=== PATIENT | male | born 1980 | race Two or more races ===

== ENCOUNTER 2020-08-25 15:47 | Emergency (ER) | payer MEDICAID, SELFPAY ==
[~2020-08-25] VITALS: Ht 185.4 cm; Wt 62.9 kg
[2020-08-25] MEDS ORDERED: AZITHROMYCIN 500 MG TABLET ONE (16:22)
[2020-08-25] MEDS ORDERED: CEFTRIAXONE 1,000 MG ONE (16:22)
--- NOTE | 2020-08-25 16:26 | NUR ---
pt medicated per mar. urine collected and tubed to lab at this time
[2020-08-25] MEDS ORDERED: AZITHROMYCIN 500 MG TABLET PO ONE (16:30)
[2020-08-25] MEDS ORDERED: CEFTRIAXONE 250 MG IM ONE (16:30)
--- NOTE | 2020-08-25 17:52 | NUR ---
pt ambulates to restroom with steady gait at this time.
[2020-08-25 18:26] VITALS: BP 124/74
--- NOTE | 2020-08-25 18:26 | NUR ---
PT D/C WITH D/C SUMMARY AND SCRIPT. ALL QUESTIONS ANSWERED. PT AMBULATES TO REGISTRATION DESK WITH STEADY GAIT FOR D/C HOME AND DENIES ANY OTHER NEEDS PERTAINING TO THIS VISIT.
== END 2020-08-25 18:32 | disposition home or self-care (01) ==
LOC: ED 17:06
DX: N34.2 Other urethritis (principal); Z59.0 Homelessness
CPT/HCPCS: 87491; 87591; 96372; 99283; J0696

== ENCOUNTER 2021-06-29 14:57 | Emergency (ER) | payer MEDICAID ==
[~2021-06-29] VITALS: Ht 185.4 cm; Wt 65.0 kg
[2021-06-29] MEDS ORDERED: ASPIRIN 81 MG TABLET CHEW PO ONE (15:30)
[2021-06-29] MEDS ORDERED: DEXT4TAB31 PO (16:12)
--- NOTE | 2021-06-29 16:12 | NUR ---
PT TO ROOM FROM LOBBY VIA WHEELCHAIR AT THIS TIME. PT C/O LEFT SIDE CP "BURNING" PAIN INCREASES WITH MOVEMENT AND PALPATION. IS NON-RADIATING. VSS. PT STATES PAIN IS SAME WHEN HE HAD BELSPALSY IN NOVEMBER OF THIS YEAR. CALL LIGHT W/I REACH. PROVIDER EVAL PENDING.
[2021-06-29] MEDS ORDERED: ASPIRIN 81 MG TABLET CHEW ONE (16:14)
[2021-06-29 16:33] LABS: BASOPHILS % (AUTO) 0 % (0-1); EOSINOPHILS % (AUTO) 0 % (1-7); LYMPHOCYTES % (AUTO) 11 % (22-44); MEAN CORPUSCULAR HEMOGLOBIN 27.9 pg (27.5-34.5); MEAN CORPUSCULAR HGB CONC 33.3 g/dL (33.2-36.2); MEAN PLATELET VOLUME 6.4 fL (7.4-10.4); MONOCYTES % (AUTO) 6 % (2-9); NEUTROPHILS % (AUTO) 82 % (42-75); PLATELET COUNT 396 x10^3/uL (130-400); RED BLOOD COUNT 4.74 x10^6/uL (4.38-5.82); RED CELL DISTRIBUTION WIDTH 15.2 % (9.4-14.8)
[2021-06-29 16:39] LABS: ALANINE AMINOTRANSFERASE 20 U/L (12-78); ALBUMIN 3.2 g/dL (3.4-5.0); ANION GAP 6 mmol/L (5-15); CALCIUM 9.2 mg/dL (8.5-10.1); CHLORIDE 103 mmol/L (98-107); CREATININE 0.91 mg/dL (0.7-1.3)
[2021-06-29 16:43] LABS: ALKALINE PHOSPHATASE 79 U/L (45-117); BILIRUBIN,TOTAL 1.1 mg/dL (0.2-1.0); TOTAL PROTEIN 7.5 g/dL (6.4-8.2); TROPONIN I < 0.015 ng/mL (0.000-0.045)
[2021-06-29] MEDS ORDERED: DOXYCYCLINE 100MG TABLET PO ONE (17:00)
--- NOTE | 2021-06-29 17:03 | NUR ---
PT AMBULATED IN HALLWAY, PULSE OX MAINTAINED GREATER THAN 97% ON RA AND HR 80'S. PT TOLLERATED WELL. TEMP 99.2. DR GIRON UPDATED.
[2021-06-29] MEDS ORDERED: DOXYCYCLINE 100MG TABLET ONE (17:10)
[2021-06-29 17:57] VITALS: BP 112/72
--- NOTE | 2021-06-29 17:58 | NUR ---
Patient/Caregiver given discharge instructions and they have confirmed that they understand the instructions. Patient ambulatory with steady gait. NAD, all questions answered appropriately, denies additional needs at this time. No personal belongings left in room after discharge.
== END 2021-06-29 17:59 | disposition home or self-care (01) ==
LOC: ED 16:30
DX: J15.9 Unspecified bacterial pneumonia (principal); R07.89 Other chest pain; F17.200 Nicotine dependence, unspecified, uncomplicated
CPT/HCPCS: 36415; 71046; 80053; 84484; 85025; 93005; 99285